=== PATIENT | male | born 1975 | race Caucasian/White ===

== ENCOUNTER → 2024-03-31 | Outpatient (CLI) | payer MEDICARE ==
[2024-03-31 16:03] VITALS: BP 137/89; PULSE 82; RESP 16; TEMP 98
--- NOTE | 2024-03-31 16:52 | P.SLEEP ---
History of Present Illness DATE: 03/31/2024 CONSULTATION/NEW PATIENT EVALUATION HISTORY OF PRESENT ILLNESS/SLEEP-WAKE EVALUATION: 48-year-old gentleman had been evaluated in the sleep center for possible obstructive sleep apnea hypopnea syndrome. SLEEP SCHEDULE: Usually patient sleeps for 6-8 hours. FALLING ASLEEP: Sometimes difficulties with falling asleep. DURING SLEEP: Patient snores and wakes up from sleep 2 times. No history of hypnogogical hallucinations, sleep paralysis, or cataplexy. DURING THE DAY/WAKE STATE: Occasionally patient may feel sleepiness during the day. [place] sleepiness scale is 7. Usually patient does not take naps. PAST MEDICAL HISTORY: History of stroke in November 2022 ,hypertension, hyperlipidemia. PAST SURGICAL HISTORY: Cyst have been removed from the neck. MEDICATIONS: Atorvastatin 40 mg once a day, metoprolol 25 mg once a day, amlodipine 5 mg once a day. SOCIAL HISTORY: Please see below. FAMILY HISTORY: Hypertension, diabetes. REVIEW OF SYSTEMS: Snoring, awakenings from sleep. No fevers. No double vision. No recent chest pain. No shortness of breath. No abdominal pain. No bleeding episodes. No blood in urine. No seizure episodes. PHYSICAL EXAMINATION: GENERAL: A pleasant patient without any distress. VITAL SIGNS: Please see below, weight 272 pounds, BMI 39. HEENT: PERRLA, EOMI. Evaluation of oropharynx showed tongue protrudes midline, low position of soft palate Mallampati 4. NECK: Supple. No JVD. Thyroid is not palpable. 17.5 inches in circumference. LUNGS: Clear to percussion and to auscultation. Good air exchange. No wheezing or rhonchi. HEART: S1, S2 regular. No murmurs, gallops or rubs. ABDOMEN: Soft and nontender. Bowel sounds are present. No organomegaly appreciated. EXTREMITIES: No clubbing or cyanosis. SCIENCE TECHNICIAN: Awake, alert, and oriented x3. Changes of the speech. there is no fasciculation or atrophy noted. No focal deficits observed. ASSESSMENT: 1. Snoring, awakenings from sleep, extremely low position of soft palate Mallampati 4, retrognathia 2 mm, wide neck 17.5 inches in circumference. Obstructive sleep apnea hypopnea syndrome. 2. Obesity, BMI 39. 3. Hypertension. 4. Status post stroke in November 2022. 5 status post cyst removed from the neck. 6 . Hyperlipidemia. PLAN: 1. Polysomnography for evaluation of patient's breathing during sleep. 2. Following plan after reading sleep study. 3. Preferable position during sleep on the side. 4. No driving if patient feels any sleepiness. Patient is aware of civil and criminal liability for unsafe driving. 5. Sleep hygiene with regular sleep time for at least 7.5-8 hours. 6. Watching and losing weight. Thank you very much for referring this patient for consultation. Sincerely, Rajeev Howard MD, PhD, FAASM. Diplomat of [place] [employer], Sleep Medicine Board by [place] [employer] [place] [employer]ing Machine Operator [employer] [facility] [place] cc: Magda Vidales Past Medical History Past Medical History: CVA/TIA, Hyperlipidemia, Hypertension Additional Past Medical History / Comment(s): stroke november 2022, mild snoring History of Any Multi-Drug Resistant Organisms: None Reported Additional Past Surgical History / Comment(s): cyst removed from neck 1992 Past Anesthesia/Blood Transfusion Reactions: No Reported Reaction Past Psychological History: No Psychological Hx Reported Smoking Status: Current every day smoker Past Alcohol Use History: Occasional Past Drug Use History: Marijuana - Past Family History Mother Family Medical History: Diabetes Mellitus, Rheumatoid Arthritis (RA) Medications and Allergies Home Medications Medication Instructions Recorded Confirmed Type Atorvastatin [Lipitor] 40 mg PO DAILY 03/31/24 03/31/24 History Metoprolol Tartrate 25 mg PO DAILY 03/31/24 03/31/24 History amLODIPine BESYLATE/BENAZEPRIL 5 mg PO DAILY 03/31/24 03/31/24 History [Lotrel 5-10 mg Capsule] Physical Exam Vitals: Vital Signs Temp Pulse Resp BP Pulse Ox 03/31/24 16:02 98 F 82 16 137/89 96 Intake and Output 03/31/24 03/31/24 03/31/24 06:59 14:59 22:59 Other: Weight 123.377 kg Sleep Note - Sleep Data ESS Total: 7 - Sleep Note Sleep Note: Temperature: 98 F Pulse Rate: 82 Respiratory Rate: 16 Blood Pressure: 137/89 SpO2: 96 Height: 5 ft 10 in Weight: 123.377 kg BMI: Neck Circumference: 17.5
== END ==
LOC: 3 N SLEEP 15:18
PROVIDERS: ATTEND Internal Medicine
DX: G47.33 Obstructive sleep apnea (adult) (pediatric) (principal); E66.9 Obesity, unspecified; Z68.39 Body mass index [BMI] 39.0-39.9, adult; I10 Essential (primary) hypertension; E78.5 Hyperlipidemia, unspecified; Z86.73 Personal history of transient ischemic attack (TIA), and cerebral infarction without residual deficits; Z98.890 Other specified postprocedural states; F17.210 Nicotine dependence, cigarettes, uncomplicated
CPT/HCPCS: 99202

== ENCOUNTER 2024-04-14 19:53 | Outpatient (CLI) | payer MEDICARE ==
--- NOTE | 2024-04-22 10:39 | P.PCN ---
Description of Procedure: POLYSOMNOGRAPHY REPORT PROCEDURE(S)/DATE(S): Polysomnography 04/14/2024 CLINICAL: Patient has been seen in the sleep center for evaluation of obstructive sleep apnea-hypopnea syndrome. Please see my consultation. Sleep study has been done for evaluation of patient breathing during the sleep. PROCEDURE: The standard montage for clinical polysomnography included the electroencephalogram, the electrooculogram, the mentalis surface electromyography and Lead II cardiography. The respiratory battery consisted of measurements of nasal/buccal air flow, pressure transducer measurements from nose, thoracic and/or abdominal effort and intercostal surface electromyography. Video monitoring has been done to check for any parasomnia events. Nocturnal oxyhemoglobin saturations were obtained by finger oximetry. Step-guerrero titration with positive airway pressure was utilized to control the respiratory events, if necessary. RESULTS: During the diagnostic sleep study sleep efficiency was significantly decreased to 69.6%. Latency to sleep onset was normal 22.0 min. Sleep architec ture showed stage NI was slightly increased to 10.7%, Delta sleep was absent 0%, REM sleep was short 12.1%. Respiratory channel showed 0 obstructive apneas, 0 mixed apneas, 1 central apneas, 53 hypopneas with lowest oxygen level 80%. Total apnea hypopnea index was 11.5. Heart rate was in the range between 73 and 81, average 77. EMG showed 6.0 periodic limb movements per hour with 0.4 micro-arousals per hour. IMPRESSIONS: 1. Obstructive sleep apnea hypopnea syndrome in mild range. 2. No significant periodic limb movements have been documented. 3. Hypertension. Please see other impressions from consultation PLAN: 1. The patient will have AutoPAP treatment for correction of respiratory abnormalities during the sleep. 2. Losing weight program. 3. Sleep hygiene with regular time in bed for at least 7-1/2 hours. 4. No driving if feeling sleepiness. 5. I will see patient for follow-up visit to evaluate clinical response on treatment, compliance with treatment and make any necessary adjustments related to mask fitting pressure and humidification. Thank you very much for allowing me to participate in the management of your patient. Sincerely, Rajeev Howard MD, PhD, FAASM. Diplomat of [place] [employer], Sleep Medicine Board by [place] [employer] Parenting Skills Instructor of [facility] [place] cc: Rell Alcaraz DO
== END 2024-04-15 05:18 | disposition home or self-care (01) ==
LOC: 3 N SLEEP 19:53
PROVIDERS: ATTEND Internal Medicine
DX: G47.33 Obstructive sleep apnea (adult) (pediatric) (principal); I10 Essential (primary) hypertension
CPT/HCPCS: 95810